=== PATIENT | female | born 2000 | race Caucasian/White ===

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

== ENCOUNTER → 2022-05-20 | Outpatient (CLI) | payer BC, SELFPAY ==
[2022-05-20 10:15] LABS: Absolute Lymphocyte Count 2.19 X10^3/uL (0.83-4.51); Absolute Neutrophil Count 2.5 X10^3/uL (2.0-7.7); Basophil# 0.06 X10^3/uL; Basophil% 1.2 % (0-1); Hematocrit 39.7 % (37-47); Hemoglobin 13.2 g/dL (12.0-15.0); Lymphocyte # 2.19 X10^3/ul (0.83-4.51); Lymphocyte % 42.8 % (19-41); Mean Corp Hgb Conc 33.2 g/dL (32-36); Mean Corpuscular Hgb 29.6 pg (27.0-32.0); Mean Platelet Vol. 12.2 fl (6.2-12.0); Monocyte# 0.31 X10^3/uL; Monocyte% 6.1 % (0-10); NRBC Flagged by Analyzer 0 % (0-5); Neutrophil # 2.45 X10^3/uL (2.7-7.7); Neutrophil % 47.7 % (47-70); Platelet Count 246 K/mm3 (150-450); RBC Distribution Width CV 12.1 % (11.6-14.6); RBC Distribution Width SD 39.6 fl (35.1-43.9); Red Blood Count 4.46 M/mm3 (4.2-5.4); White Blood Count 5.1 K/mm3 (4.4-11.0)
[2022-05-20 10:17] LABS: Hemoglobin A1c 4.8 % (3.8-5.6)
[2022-05-20 10:23] LABS: ALB/GLOB Ratio 1.1 RATIO (0.9-2.4); AST(SGOT) 10 U/L (15-37); Alanine Aminotransfer ALT/SGPT 16 U/L (13-56); Albumin, Serum 3.7 g/dL (3.2-5.0); Alkaline Phosphatase 69 U/L (45-117); Anion Gap 6 (5-15); BUN 10 mg/dL (7-18); BUN/Creat Ratio 15.5 RATIO (10-20); Calcium,Total 8.6 mg/dL (8.5-10.1); Chloride 106 mmol/L (98-107); Cholesterol 188 mg/dL (200); Creatinine, Serum 0.65 mg/dL (0.55-1.02); EST Glomerular Filtration Rate 124 mL/min (>60); Est Glom Filt Rate - Afr Amer 150 mL/min (>60); Globulin 3.4 g/dL (2.2-4.2); Glucose 84 mg/dL (74-106); High Density Lipoprotein 66 mg/dL; Potassium 3.9 mmol/L (3.5-5.1); Protein, Total 7.1 g/dL (6.4-8.2); Sodium Level 140 mmol/L (136-145); Thyroid Stim Hormone (TSH) 0.57 uIU/mL (0.358-3.74); Triglycerides 47 mg/dL; Very Low Density Lipoprotein 9 mg/dL (5-40)
[2022-05-20 10:46] LABS: Valproic Acid (Depakene) Level 65 ug/mL (50-100)
== END | disposition home or self-care (01) ==
DX: F32.A Depression, unspecified (principal)
CPT/HCPCS: 36415; 80053; 80061; 80164; 82140; 83036; 84443; 85025

== ENCOUNTER 2022-06-10 08:00 | Outpatient (RCR) | payer BC, SELFPAY ==
--- NOTE | 2022-06-10 09:00 | BH.SGPN.GN ---
Behaviors/Verbalizations/Mental Status: []Eye contact is poor/avoidant. Motor activity is appropriate. Appearance is casual. Hygiene fair. Speech is Appropriate. Mood is depressed. Affect is flat. Thoughts are linear and logical. No evidence of psychosis. Reviewed daily check in sheet and indicated a 4/5, with 5 being severe, for suicidal ideation and a 1/5 for suicidal intent. Client completed C-SSRS this morning and indicated she could keep self safe. Will meet with PHP individual therapist today. Client Response/Progress/Benefit: []Client passive participant but appeared to listen attentively to others. Client stated she did not want to share this morning. Client's first day in IOP. Seemed to benefit from getting out of her house, hearing struggles and positives from other group members, and support from peers. Client is to continue PHP to improve daily functioning, increase use of healthy coping skills and prevent decompensation. Narrative Note: []
--- NOTE | 2022-06-10 10:05 | BH.SGPN.GN ---
Behaviors/Verbalizations/Mental Status: []Pt alert and oriented, disheveled appearance. Eye contact good. Motor activity appropriate. Speech within normal limits. Affect flat, mood depressed. Thoughts linear, logical, no signs of hallucinations or delusions. Client Response/Progress/Benefit: []Pt attentive during psychoeducation and participated in group activity. Participated in interactive group discussion on internal and external barriers to mental health progress. Group identified examples of internal barriers as; negative thoughts, anxiety, cognitive distortions, and past experiences. Pt elpidio a picture of their current reality which pt described as I'm like a computer that's not plugged in and all the other computers around me are. Pt also elipdio their desired reality which pt described as the computer is plugged in now, but it's still broken. Pt reports feeling like they will never get to a place that they feel better. Group offered support and encouragement. Benefited from increased awareness of current barriers to progress as well as current/desired realities. First day of PHP tx. Pt will continue PHP tx to prevent decompensation, maintain safety, and increase use of healthy coping skills. Narrative Note: []
--- NOTE | 2022-06-10 11:10 | BH.SGPN.GN ---
Behaviors/Verbalizations/Mental Status: [] Eye contact is good. Motor activity is appropriate. Appearance is casual. Speech is Appropriate. Mood is depressed. Affect is flat. Thoughts are linear and logical. No evidence of psychosis. Client Response/Progress/Benefit: [] Pt was an active participant in group discussions. Attentive during psychoeducation. Engaged in experiential group activity. Able to identify barriers to desired reality which include: isolation, over-compensate, and having poor boundaries. Participated as group brainstormed ideas on how to cope with internal barriers that can keep individuals stuck. Benefited from group by identifying obstacles and solutions to desired reality.? Will continue in PHP to maintain safety, prevent decompensation, reduce negative automatic thoughts, and improve functioning. Narrative Note: []
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
--- NOTE | 2022-06-10 14:29 | BH.COMM ---
Communication Note - Communication with Client Communication Note: Met with pt to complete initial paperwork. No significant changes to pre-admission screening. Completed [facility]icide Screening. Moderate-severe risk. Pt reports long-standing history of suicidal ideations. Admits to thoughts of and thoughts of killing herself within the past month, but pt denies any active SI, plan, or intent currently. Pt reports history of two previous suicide attempts via overdose, with the most recent being the beginning of last year. Pt reports history of cutting, but has not cut within the last six months. Pt has stockpiled medications in the past and written suicide notes. Pt reports she is ?too tired? to try and kill herself now and reports ability to maintain safety today. Pt did not represent as an imminent threat to self or others. No access to weapons. Case discussed with Dr. Claire with plan to admit to [facility] level of care with dx of F31.81
--- NOTE | 2022-06-10 15:43 | BH.MDN_ITS ---
Multi-Disciplinary Note - Note 60-min Individual Time Started:: 12:15 Date: 06/10/22 Purpose of session/treatment goals addressed:: Purpose of session was to assess current symptoms and stressors, gather background information and discuss PHP treatment goals. Eye Contact:: Poor Motor Activity:: Appropriate Appearance:: Disheveled Speech:: Soft, Other - latency of speech at times Mood:: Depressed Affect:: Flat Thoughts:: Linear, Logical, Other, No evidence of hallucinations/delusions noted Staff Interventions:: psychoeducation on: - cognitive triangle, CBT techniques, rapport building, strengths perspective, treatment planning, goal setting, taugh t coping skills Client Response:: Client reported first day of group was okay. Client stated she has completed a PHP program in the past when she was an adolescent. Client r eported at the time she had found it helpful because helped keep her accountable. Client stated she knows a lot of skills from being in therapy since adolescence. Client stated part of her wants to get better and the other part of her doesn't want to try. Client stated biggest concerns currently are depression and feeling disconnected. Client elaborated that at time she doesn't feel real. Client stated there are times when she doesn't feel like her family is her family. Client reported having a hard time dealing with the disconnect. Client shared this started three years ago after a friendship falling out in school. Client stated she felt like one of her best friends started to act like client which made client felt like I lost myself. Client reported while in PHP she'd like to work on being more honest with herself and start to feel like her own person again. Client stated she was familiar with psychoeducation about cognitive triangle. Stated she would try opposite action. Client reported small goal for today is to clean inside of her car. Risks/Concerns:: Client reports chronic thoughts of suicide. Denies suicidal intention or plan. feels able to keep self safe. Progress Toward Goals/Plan:: Minimal progress observed due to it being client's first day in PHP. Session focused on building rapport, understanding symptoms that brought client to PHP and identifying treatment goals. Client is to continue PHP to improve daily functioning, increase healthy coping and prevent decompensation. Time Stopped:: 13:15
--- NOTE | 2022-06-11 15:32 | BH.COMM ---
Communication Note - Communication with Client Communication Note: Client called to cancel PHP today due to not feeling well.
--- NOTE | 2022-06-12 09:00 | BH.SGPN.GN ---
Behaviors/Verbalizations/Mental Status: []Eye contact is fair. Motor activity is appropriate. Appearance is casual. Speech is Appropriate. Mood is depressed and anxious. Affect is flat. Thoughts are linear and logical. No evidence of psychosis. Reviewed daily check in sheet and no reports of suicidal ideations or intent. Client Response/Progress/Benefit: []Pt responded well to session, started PHP on 06/10/22. Pt reports feeling detached this morning and did not share much during her check-in. Pt stated her mental health wins are showing up to group today when she wanted to cancel and starting to clean her car. The group offered emotional support to pt and words of encouragement for treatment. Pt appeared highly anxious, so therapist did not push pt to elaborate on her stressors. Pt appeared to benefit from connecting with peers and not isolating. Pt will continue PHP tx to prevent decompensation, reduce isolation, and gain healthy coping skills. Narrative Note: []
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
[2022-06-12 11:05] VITALS: BP 128/86; PULSE 63
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
--- NOTE | 2022-06-12 12:50 | BH.DR.ITP ---
Initial Treatment Plan Patient Information Visit Information: ADMISSION DATE: EXPECTED LOS: 4-6 weeks Problems/Symptoms Problem #1:: Depression Symptom:: Sadness, hopelessness, worthlessness, apathy, guilt, passive thoughts of , recent daily suicidal ideation, decreased concentration, fatigue Problem #2:: Anxiety Symptom:: Worry, rumination, social anxiety
--- NOTE | 2022-06-12 14:31 | BH.MDN ---
Multi-Disciplinary Note - Note 45-min Individual Time Started:: 12:10 Date: 06/12/22 Purpose of session/treatment goals addressed:: Purpose of session was to address goal [address] [facility]. Eye Contact:: Poor Motor Activity:: Appropriate Appearance:: Disheveled Speech:: Soft, Other - latency of speech at times Mood:: Depressed Affect:: Flat Thoughts:: Linear, Logical, No evidence of hallucinations/delusions noted Staff Interventions:: motivational interviewing, CBT techniques, rapport building, strengths perspective, goal setting, taught coping skills - grounding tools and belly breathing techniques Client Response:: Client reported after PHP on Friday she went to her sisters which she stated ?was OK?. Client reported she had an episode while at her sisters in which she felt like other people weren't real and things weren't real. Client stated she woke up still feeling like ?nothing is real? and decided to not come to [facility]. Client reported yesterday she stayed in bed majority of the day doing nothing. Client reported eventually she made herself play a video game but stated she still was not present. Client connected with discussion about depersonalization, disassociation, and disconnection. Therapist explained using mindfulness and grounding tools can be helpful to bring self to here and now. client reported after reflecting yesterday she thinks she started to have issues with feeling disconnected and ?not real? after significant stressor of losing relationship with her two best friends in high school. Client stated the best friend that appeared to take on client?s personality and mannerisms significantly impacted clients own view of self. Client reported she started to question what she liked and still doesn't know who she is today. Client stated she still hangs out with this individual and has moments in which she feels like this friend continues to try to take parts of clients personality. Client identified this disconnection and escape helps her not have to manage the uncomfortable emotions that happen when she feels connected with reality. Client worked with therapist to identify things that used to work in the past with increasing connection which included listening to music, walks, counting, and playing with her cat. Therapist encouraged client to start to engage with some of these skills again to help with her feeling more connected. Client reported personal hygiene has not been very good lately due to feeling depressed. Reported her goal for today is to shower in the evening and practice one of the grounding tools discussed in session today as a way to prevent disconnection from reality. Risks/Concerns:: Client reports chronic thoughts of wishing she didn't exist. Denies suicidal intention or plan. feels able to maintain safety. Progress Toward Goals/Plan:: Progress minimal. Client did not attend PHP yesterday due to not being motivated to get out of bed. Client continuing to report feeling disconnected and not feeling real majority of her days. Client open to trying skills that used to help improve feeling connected in the past and willing to try grounding tools. Therapist reiterated importance of opposite action and identified plan to start with personal hygiene. Plan is to continue PHP to improve daily functioning, increase use of healthy coping and prevent decompensation. Time Stopped:: 12:55
--- NOTE | 2022-06-13 09:05 | BH.SGPN.GN ---
Behaviors/Verbalizations/Mental Status: [] Eye contact is good. Motor activity is appropriate. Appearance is casual. Speech is Appropriate. Mood is euthymic. Affect is full. Thoughts are linear and logical. No evidence of psychosis. Reviewed daily check in sheet and pt identified suicidal thoughts and intent at levels which are baseline since entering the program. Client Response/Progress/Benefit: [] Pt participated only when prompted. Attentive at times, however mostly looked at the ground. She chose not to share today when called up. Limited progress noted. Unknonwn if she benefited at all from group discussions. Continues to be disengaged during groups despite encouragement of staff and peers. No progress noted. Will continue in PHP to maintain safety, increase healthy coping, and improve functioning. Narrative Note: []
--- NOTE | 2022-06-13 10:15 | BH.SGPN.GN ---
Behaviors/Verbalizations/Mental Status: []Pt alert and oriented, disheveled appearance. Eye contact good. Motor activity appropriate. Speech within normal limits. Affect flat, mood depressed. Thoughts linear, logical, no signs of hallucinations or delusions Client Response/Progress/Benefit: []Pt responded well to session AEB taking notes throughout and listening attentively to others. Pt was attentive throughout group activity identifying famous individuals and how they overcame failure to be successful. Pt helped group identify how fear of failure can impact mental health and relationships. Pt personally identified it leads to ?in action? and isolation. Pt participated in experiential activity, and pt struggled at first with expressing ideas, but pt did better by the end of session. ?Appeared to benefit from increased knowledge of fear of failure. Pt is still quiet in group, but her affect is improving. Will continue PHP tx to prevent decompensation and improve daily functioning. Narrative Note: []
--- NOTE | 2022-06-13 11:15 | BH.SGPN.GN ---
Behaviors/Verbalizations/Mental Status: []Pt alert and oriented, disheveled appearance. Eye contact good. Motor activity appropriate. Speech within normal limits. Affect flat, mood depressed. Thoughts linear, logical, no signs of hallucinations or delusions. Client Response/Progress/Benefit: []Pt responded well to session, engaged in the experiential activity and attentive throughout group processing. Pt reported fear of failure has kept pt from making friends, strengthening relationships, hobbies, and being herself. Pt completed fear of failure worksheet and was able to identify thoughts and behaviors that reinforce personal fear of failure including toxic people, being rigid with solutions, and self-sabotage. Pt participated in small group discussion regarding strategies to overcome fear of failure. Identified wanting to work on opposite action and ?fear setting? to overcome fear of failure. Appeared to benefit from increased knowledge of strategies to combat fear of failure and gaining self-awareness. Pt will continue PHP tx to prevent decompensation, gain healthy coping skills, and reduce feelings of disconnect. Narrative Note: []
--- NOTE | 2022-06-13 14:47 | BH.MDN ---
Multi-Disciplinary Note - Note 30-min Individual Time Started:: 12:10 Date: 06/13/22 Purpose of session/treatment goals addressed:: Purpose of session was to address goal 1 from [facility]. Eye Contact:: Poor Motor Activity:: Appropriate Appearance:: Casual Speech:: Soft Mood:: Dysthymic Affect:: Constricted Thoughts:: Linear, Logical, No evidence of hallucinations/delusions noted Staff Interventions:: motivational interviewing, CBT techniques, rapport building, strengths perspective, goal setting Client Response:: Client reported she practiced the grounding tool of engaging her senses. Client stated it ely helped with her feeling more present. Client stated accomplished goal of showering yesterday evening. Stated she would like to have a goal of showering every other day. Client reported she also mowed her parents yard yesterday which is something she hadn't done in a long time. Client stated she decided to do it because she had time and knew it needed done. Client stated with her family she does try to initiate a conversation with someone in the family at least once per day but reported the other person doesn't try to engage with her. Client reported as a family they do play games together every couple weeks in which she is able to enjoy herself. Client reported she does feel often she is just fake happy when around others. Client stated she does see benefit of being around others despite not feeling truly happy. Client connected to education about core beliefs. Client open to completing mistaken beliefs questionnaire. Risks/Concerns:: Client reports chronic thoughts of wishing she didn't exist. Client denies suicidal intent or plan. feels able to maintain safety. Progress Toward Goals/Plan:: Progress noted with client reporting following through with goal of showering and practicing grounding tools to increase connection with here and now. Client showing slight increase in motivation AEB her mowing parents yard on her own volition. Client continues to report disconnection and not feeling real. Client is reporting decrease in isolative behaviors. Client to continue PHP to improve daily functioning, increase healthy coping and prevent decompensation. Time Stopped:: 12:45
--- NOTE | 2022-06-14 16:21 | BH.MDN ---
Multi-Disciplinary Note - Note 45-min Individual Time Started:: 09:55 Date: 06/14/22 Purpose of session/treatment goals addressed:: Purpose of session was to address goal 1 from [facility]. Eye Contact:: Fair Motor Activity:: Appropriate Appearance:: Disheveled Speech:: Appropriate Mood:: Dysthymic Affect:: Constricted Thoughts:: Linear, Logical, No evidence of hallucinations/delusions noted Staff Interventions:: motivational interviewing, CBT techniques, rapport building, strengths perspective, goal setting, other - creating structure/plan for weekend to decrease isolation Client Response:: Client reported yesterday she went out to eat with her family. Client stated it was alright being out with her family. In review of symptoms client reported continues to have passive thoughts of in which she wishes she wasn't alive but doesn't have any active thoughts of wanting to kill herself. Client stated when she has the passive thoughts of it doesn't aurelio effect into more suicidal thoughts. Client stated weekends tend to be a blur in which she doesn't do much. Agreed it would be helpful to create a plan so she knows what she can do over the weekend. Client stated she can spend time at her sister's one of the days and hang out with one of her friends. Client reported she could go on a walk or do something to get outside. Client stated tasks she can complete are cleaning her room, brushing teeth at night every other day and cleaning the litter boxes out. Client stated she believes it is possible to complete these things over the weekend. Risks/Concerns:: Continues to report passive thoughts of . Denies active thoughts of suicide, plan or intention to date. feels able to maintain safety. Progress Toward Goals/Plan:: Progress noted with client turning in completed mistaken beliefs questionnaire, reporting no active suicidal thoughts, and decrease in isolation. Client worked with therapist to develop plan for weekend to increase socialization and accomplish other goals. First session in which client did not talk about feeling disconnected or not real. Plan is to see how weekend goes and discuss on Friday discharging from [facility] and transitioning to IOP on Friday. Time Stopped:: 10:40
--- NOTE | 2022-06-17 09:05 | BH.SGPN.GN ---
Behaviors/Verbalizations/Mental Status: [] Eye contact is poor. Motor activity is appropriate. Appearance is disheveled. Speech is Appropriate. Mood is depressed. Affect is flat. Thoughts are linear and logical. No evidence of psychosis. Reviewed daily check in sheet and pt reports 4/5 for suicidal thoughts, and 1/5 for intent. Staff aware. Will see therapist this afternoon. Client Response/Progress/Benefit: [] Pt participated when prompted. Attentive. Daily symptom tracker notes 5/5 for depression, 3/5 for anxiety, and 2/5 for irritability. Emotion for today is detached. Mental health wins were I'm here today and I started to clean my room. She did not elaborate on either of these wins. Unsure if she is implementing coping skills, thought reframing, or self-care. Unsure what motivated her to start to clean her room. Denies any stressors. Benefited from group support and encouragement. Limited progress noted per pt report. Will continue in [facility] to maintain safety, prevent decompensation, increase healthy coping skills, and improve functioning. Narrative Note: []
--- NOTE | 2022-06-17 10:05 | BH.SGPN.GN ---
Behaviors/Verbalizations/Mental Status: []Pt alert and oriented, disheveled appearance. Eye contact fair. Motor activity appropriate. Speech within normal limits. Affect constricted, mood depressed. Thoughts linear, logical, no signs of hallucinations or delusions. Client Response/Progress/Benefit: []Pt participated at times during the group discussion. Attentive during psychoeducation. Participated in experiential activity. Pt took notes during interactive discussion on the consequences of unhealthy expression of emotions.? Attentive while peers identified several consequences which included; pushing people away, ?exploding,? and losing relationships. Attentive during interactive discussion on common potholes to effectively communicating which included; shutting down, assuming, fear of judgement, and not knowing what to say. Pt reported personally struggling with shutting down and apathy impacting her ability to communicate. ?Pt was able to relate and make connections between the experiential activity and the overall topic. Benefited from increased awareness of how stress and emotions can impact one's ability to communicate. Will continue in PHP tx to increase mood stability, reduce intensity of symptoms, and strengthen healthy coping skills. ? Narrative Note: []
--- NOTE | 2022-06-17 11:05 | BH.SGPN.GN ---
Behaviors/Verbalizations/Mental Status: []Pt alert and oriented, disheveled appearance. Eye contact fair. Motor activity appropriate. Speech within normal limits. Affect constricted, mood depressed. Thoughts linear, logical, no signs of hallucinations or delusions. Client Response/Progress/Benefit: []Pt engaged in session AEB pt listening attentively to peers and taking notes. Attentive during psychoeducation on 4 zones of regulation. Pt able to identify feelings and behaviors for each zone.? Pt identified coping skills one can use to support self in each zone. Pt stated belief that pt is in the blue zone today as pt feels disconnected and apathetic. Pt reports going on a walk today and practicing some grounding could help pt get out of the blue zone today. Benefited from increased education on zones of regulation or stages of alertness for emotions and healthy coping skills to use for each zone. Pt will continue PHP tx to reduce intensity of symptoms, improve daily functioning, and prevent decompensation. Narrative Note: []
--- NOTE | 2022-06-17 15:32 | BH.COMM ---
Communication Note - Communication with Client Communication Note: Client scheduled to meet with PHP individual therapist today after group, but client cancelled session due to having to potato picker brother from another appointment.
--- NOTE | 2022-06-18 15:32 | BH.COMM ---
Communication Note - Communication with Client Communication Note: Client called to cancel PHP today due to not feeling well.
--- NOTE | 2022-06-19 11:54 | PCM.BH.PN ---
Progress Note Progress Note: And history of Present Illness/Interim History: [] The patient is a 22-year-old single female with a history of depression anxiety and cluster B traits who is seen in follow-up at the [facility] behavioral health IOP program. I last saw the patient 1 week ago and at that time she had been started on Effexor XR 37.5 mg 5 days before that appointment. So she has been on this now for almost 2 weeks and is tolerating medication well but does not feel like she is much better. She remains very depressed with hopelessness, worthlessness and anhedonia. She is missed a day or so in the last week and does not participate much in group. She feels that she is not any better. However she still has passive thoughts that she would not care if she but she denies any suicidal ideation whatsoever. She denied this last week also. She also denies plan for suicide, homicidal ideation, hallucinations or delusions or joni. Current Psychiatric Medications: [] Effexor XR 37.5 mg p.o. daily (x2 weeks now) Mental Status Examination: [] The patient is a 22-year-old female who is casually dressed and groomed and is seen wearing a hoodie overhead every day. She has mild psychomotor retardation and looks down during the interview at times. Eye contact is fair to poor and the patient looks down or away often. Speech is normal rate and rhythm and fluent with no pressure. Mood is depressed. Affect is flat and occasionally tearful.. Thought process is goal-directed and organized. Thought content: The patient is very hard on herself and during the interview states that she is very disappointed in her self. There is evidence of passive thoughts of . There is no evidence of suicidal ideation, plan for suicide, homicidal ideation, hallucinations or delusions. Reality testing is intact. Intelligence is above average. Judgment is intact. Insight is limited. Impulsivity is high. Diagnoses: [] 1. Major depressive disorder, recurrent, severe without psychosis 2. Generalized anxiety disorder 3. Strong cluster B traits, rule out avoidant traits Plan: [] The patient will continue the program at [facility] and will be downgraded to the IOP program as she is able to contract for safety. She felt safe during the interview and if it anytime she does not feel safe she will let us know or go to the emergency room. The risk, options and possible complication of the medication were discussed with the patient and she will understands and accepts these. She agrees to increase her Effexor XR to 75 mg p.o. daily and prescription was sent in for this. In several weeks if she is still this sedate I will probably add Wellbutrin. She will continue to follow-up with her outpatient providers and I will see the patient in follow-up in 2 weeks.
--- NOTE | 2022-06-19 14:06 | BH.DS_ITS ---
Discharge Summary - Demographics Date of Admission:: 06/10/22 Discharge Date: 06/19/22 Presenting Problems at Admission:: The patient is a 22-year-old single female with a history of Bipolar 2 disorder and anxiety who was referred to the [facility] behavioral health [facility] program by her outpatient psychiatric provider for worsening depression with daily suicidal ideation. She has been having worsening depressive symptoms since 3 years ago when she was admitted to a psychiatric hospital for depression and a suicide attempt following a traumatic experience at school. She is isolating and does not like for others to see her. She feels numb and nothing feels real. She has not worked for the past 2 weeks and is off work now for [facility] but she used to work at [employer] for the past 4 months. Client endorses depressed mood, low motivation, apathy, hopelessness, worthlessness, guilt, anhedonia, increased sleep, low energy, and decreased concentration. Reports anxious in social situations and worrier by nature. Discharge Diagnoses:: 1. Major depressive disorder, recurrent, severe without psychosis F33.2. 2. Generalized anxiety disorder. 3. Strong cluster B traits, rule out avoidant traits Reason for Discharge:: Client has met maximum benefit from [facility] level of care. No longer reports daily active thoughts of suicide, has been able to maintain safety for over one week. Client reports feeling ready to discharge from [facility]. Client has verbalized she is not sure if she is getting what she wants from current program. Client states she has learned the material in previous PHP prog [facility] 3 years ago and stated the skills did not work. Client did admit she has not been using the skills consistently during current program. Client has requested resources to other programs that offer a different therapeutic approach. - Treatment Progress During Treatment & Response: Progress can be noted with client denying active suicidal thoughts in the last two weeks. Client continues to report passive thoughts of like I wish I didn't exist but denies suicidal intent or plan. Client has cancelled two PHP days due to low motivation. Client is mostly a passive participant during group sessions, however does appear to take notes. Client does struggle with following through with daily goals. Issues Still to be Addressed:: Client could benefit from continue reinforcement of healthy coping skills, using grounding tools more consistently to increase feelings of connectedness, identifying and challenging distorted/negative thinking, and increasing consistency of accomplishing goals. Discharge Recommendations/Instructions:: It is recommended client discharge from PHP and start IOP level of care tomorrow. Client will be provided resources to other types of PHP/IOP programs that she could move to if she feels it is a better fit. Client will admit to [facility] IOP until a new program is decided upon so client does not have lapse in treatment. Discharge Handout: Complete Discharge Handout with client on aftercare options and continuity of care.
--- NOTE | 2022-06-19 15:36 | BH.MDN ---
Multi-Disciplinary Note - Note 30-min Individual Time Started:: 12:05 Date: 06/19/22 Purpose of session/treatment goals addressed:: Purpose of session was to address goal 1 from [facility] and to discuss discharge from [facility]. Eye Contact:: Poor Motor Activity:: Appropriate Appearance:: Disheveled Speech:: Soft, Other - latency of speech Mood:: Depressed Affect:: Flat Thoughts:: Linear, Logical, No evidence of hallucinations/delusions noted Staff Interventions:: motivational interviewing, CBT techniques, discharge planning, strengths perspective, other - review of treatment progress Client Response:: Client reported yesterday she didn't come because she woke up with little motivation so decided to cancel coming to [facility]. Client stated she eventually made herself get up and get a few things down around the house. Client reported over the weekend she did not complete her goals set last session. Client stated she didn't shower or brush teeth on Friday evening and Friday evening as she had reported she would. Client reported she was too busy so wasn't able to complete goal. Client stated on Friday she went out with her Aunt to a movie and hung out with one of her friends for his birthday republican. Client reported the birthday republican was alright. Client stated there was a lot of people at the republican she didn't know so she kept to herself. Client stated Friday she did a lot of tasks around the house for her parents. Client reported on Friday she slept a lot and laid around all day. Client reported yesterday she hung out with the friend she has a complicated history with and it didn't go well. Client stated her friend was making comments that client had made several months ago an the friend was acting like it was her own idea. Client reported it made her start to question if she had the idea in the first place. In review of client's symptoms and how she feels the program is going client stated she kind of feels like she isn't getting what she needs. Client stated she has heard the skills and material before in previous therapy and it hasn't worked before. Client reported she needs more or a different approach. Client unable to articulate what she means by a different approach. Client admitted in [facility] thus far she hasn't put forth as much effort to apply the skills as she did when she did [facility]'s [facility] three years ago. Therapist told client referrals could be provided to other outpatient programs with a different therapeutic modality like [facility]. Client stated she needs to talk with her mom and will make a decision by Friday. Client agreed to discharge from [facility] and start IOP tomorrow. Client states she hasn't had active thoughts of wanting to kill herself in two weeks. Risks/Concerns:: Client continues to report thoughts of wishing she didn't exist. Client states denies thoughts of actually killing herself, suicidal intention or plan. Client feels able to maintain safety. Progress Toward Goals/Plan:: Client progress minimal. Client had been showing slight progress last week when she started to follow through with the skills and goals at home. Client over the weekend did not accomplish goals set and laid around most of the day Friday. Client left early on Friday so did not get her individual session and she cancelled PHP yesterday (second cancel in one week). Client did not verbalize any additional benefit to staying in [facility] and reports no longer having active suicidal thoughts. Client minimal progress could be attributed to poor follow through on following through with skills and client stating she doesn't think this will work since it didn't work in the past. Plan is for client to talk with her mom about potentially seeking treatment at a different program that offers a different therapeutic modality. Client is to tell staff tomorrow what she would like to do. Time Stopped:: 12:40
== END 2022-06-19 14:38 | disposition home or self-care (01) ==
LOC: BHPHP 08:00
PROVIDERS: Referring Provider Psychiatry & Neurology Psychiatry; Visit Provider Psychiatry & Neurology Psychiatry
DX: F33.3 Major depressive disorder, recurrent, severe with psychotic symptoms (principal); F41.1 Generalized anxiety disorder; Z79.899 Other long term (current) drug therapy
CPT/HCPCS: H0035; 90832; 90834; 90837; G0410

== ENCOUNTER 2022-06-20 08:00 | Outpatient (RCR) | payer BC, SELFPAY ==
--- NOTE | 2022-06-19 09:00 | BH.SGPN.GN ---
Behaviors/Verbalizations/Mental Status: [] Eye contact is poor. Motor activity is appropriate. Appearance is casual. Speech is Appropriate. Mood is depressed. Affect is flat. Thoughts are linear and logical. No evidence of psychosis. Client Response/Progress/Benefit: [] Pt participated only when prompted. Attentive at times. Spend most of group looking down at floor. She agreed to share this AM stating that her mental health win is ?I?m here and I took a walk yesterday?. She did not elaborate however did report that the walk was beneficial to her mental health. Stressor is ?setting boundaries? with certain support. Again, she chooses not to elaborate. Unsure if progress noted as pt continue to struggle with opening up in process group. Limited engagement with peers and on topics. Will continue in PHP to maintain safety, increase healthy coping, and prevent decompensation.??? Narrative Note: []
--- NOTE | 2022-06-20 10:00 | BH.SGPN.GN ---
Behaviors/Verbalizations/Mental Status: [] Eye contact is good. Motor activity is appropriate. Appearance is casual. Speech is Appropriate. Mood is anxious. Affect is constricted. Thoughts are linear and logical. No evidence of psychosis. Client Response/Progress/Benefit: [ ] Client still adjusting to group environment with not sharing input in group. Attentive during psychoeducation on the six types of boundaries (physical, emotional, intellectual, sexual, time, and material) AEB note-taking. Group discussed on defining what a boundary is in mental health. Peers identified challenges to setting boundaries which included; fear of other's response, guilt, fear of rejection, fear of disappointing the other person, etc. Peers identified the benefits to setting boundaries such as feeling empowered, decreased stress, and increased time for self-care. Group discussed the mental health benefits to establishing boundaries at work, school, and home. Client benefited from increased awareness and insight on the importance/benefit to setting health boundaries. Will continue in IOP to prevent decompensation, stabilize anxiety, and improve functioning. Narrative Note: []
--- NOTE | 2022-06-20 11:00 | BH.SGPN.GN ---
Behaviors/Verbalizations/Mental Status: [] Client alert and oriented, casually dressed and appropriately groomed. Eye contact good. Motor activity normal. Speech within normal limits. Affect constricted, mood anxious and euthymic. Thoughts linear and intact. no signs of delusions or hallucinations Client Response/Progress/Benefit: [] Client responded well to session AEB listening attentively to peers, providing some input, as well as taking notes throughout. Client contributed some on psychoeducation on different boundary setting styles. Reports connecting most with ridged style of boundary setting, indicating that she does not like to get close to people with fear of rejection. Participated in small group discussion brainstorming various strategies for improving healthy boundary setting. Seemed to benefit from increased awareness of how different boundary styles can impact mental health. Will continue IOP tx to increase consistent application of skills, increase positive self talk and anxiety management, and prevent decompensation. Narrative Note: []
--- NOTE | 2022-06-20 15:16 | BH.COMM ---
Communication Note - Communication with Client Communication Note: Met with pt to complete IOP paperwork. No significant changes since PHP paperwork. Case discussed with Dr. Claire with plan to admit to IOP level of care with dx of F31.81
--- NOTE | 2022-06-24 10:58 | BH.COMM_ITS ---
Communication Note - Communication with Client Communication Note: Client no showed/no called IOP today. This filing writer left voicemail for client requesting her to return call. Client had requested last week to discuss other therapy program options. This filing writer was scheduled to meet with client today to go over those options.
--- NOTE | 2022-06-24 10:58 | BH.COMM ---
Communication Note - Communication with Client Communication Note: Client no showed/no called IOP today. This technical proposal writer left voicemail for client requesting her to return call. Client had requested last week to discuss other therapy program options. This technical proposal writer was scheduled to meet with client today to go over those options.
--- NOTE | 2022-06-26 10:10 | BH.SGPN.GN ---
Behaviors/Verbalizations/Mental Status: [] Eye contact is poor. Motor activity is appropriate. Appearance is disheveled. Speech is Appropriate. Mood is depressed. Affect is flat. Thoughts are linear and logical. No evidence of psychosis. Client Response/Progress/Benefit: [] Pt did not participate in group discussions. Attentive during psychoeducation and while peers had interactive discussions in which group defined self-care, discussed the benefits to self-care, and identified common myths surrounding self-care which included; self-care is selfish, self-care is self-indulgent, self-care is just personal hygiene, self-care should be fun, self-care is too time consuming, I don?t deserve it, self-care means I?m not being productive. Pt did participate at times when peers broke into smaller groups and worked together to bust the myths associated with self-care. Benefited from increased awareness of the self-care and its benefits. Will continue in IOP to maintain safety, prevent decompensation, increase healthy coping, and improve functioning. Narrative Note: []
== END 2022-06-26 23:59 ==
LOC: BHIOP 08:00
PROVIDERS: Referring Provider Psychiatry & Neurology Psychiatry; Visit Provider Psychiatry & Neurology Psychiatry
DX: F31.81 Bipolar II disorder (principal)
CPT/HCPCS: S9480; 90832; 90853

== ENCOUNTER 2022-06-27 07:43 | Outpatient (RCR) | payer BC, SELFPAY ==
--- NOTE | 2022-06-27 09:00 | BH.SGPN.GN ---
Behaviors/Verbalizations/Mental Status: [] Eye contact is poor. Motor activity is appropriate. Appearance is casual. Speech is Appropriate. Mood is depressed. Affect is flat. Thoughts are linear and logical. No evidence of psychosis. Reviewed daily check in sheet and pt reports 4/5 for suicidal ideations and 0/5 for intent. This is close to baseline. Client Response/Progress/Benefit: [] Pt participated only when prompted. Attentive at times however mainly looking down. Mental health win was ?I went to the park for a walk? . Emotion for today is ?distant?. She states ?I have no stressors?. Daily symptom tracker notes 4/5 for depression and 4/5 for suicidal thoughts. No progress noted. Limited benefit from group discussions. Will continue in IOP to maintain safety, increase healthy coping, and improve functioning. Narrative Note: []
--- NOTE | 2022-07-03 11:13 | BH.COMM ---
Communication Note - Communication with Client Communication Note: no call/ no show for IOP today. She was scheduled to meet with psychiatrist. Has been inconsistent with both PHP and IOP since being admitted.
--- NOTE | 2022-07-04 09:27 | BH.COMM_ITS ---
Communication Note - Communication with Client Communication Note: Client no showed/no called. Second no show this week. This technical report writer left voicemail asking for callback and if doesn't hear back by today at 2pm client will be discharged from [facility].
--- NOTE | 2022-07-04 09:27 | BH.COMM ---
Communication Note - Communication with Client Communication Note: Client no showed/no called. Second no show this week. This typewriter repairer left voicemail asking for callback and if doesn't hear back by today at 2pm client will be discharged from [facility].
--- NOTE | 2022-07-04 14:36 | BH.DS ---
Discharge Summary - Demographics Date of Admission:: 06/10/22 Discharge Date: 07/04/22 Presenting Problems at Admission:: The patient is a 22-year-old single female with a history of Bipolar 2 disorder and anxiety who was referred to the [facility] behavioral health PHP program by her outpatient psychiatric provider for worsening depression with daily suicidal ideation. She has been having worsening depressive symptoms since 3 years ago when she was admitted to a psychiatric hospital for depression and a suicide attempt following a traumatic experience at school. She is isolating and does not like for others to see her. She feels numb and nothing feels real. She has not worked for the past 2 weeks and is off work now for [employer] but she used to work at [employer] for the past 4 months. Client endorses depressed mood, low motivation, apathy, hopelessness, worthlessness, guilt, anhedonia, increased sleep, low energy, and decreased concentration. Reports anxious in social situations and worrier by nature. Discharge Diagnoses:: 1. Major depressive disorder, recurrent, severe without psychosis F33.2. 2. Generalized anxiety disorder. 3. Strong cluster B traits, rule out avoidant traits Reason for Discharge:: Client had requested information for a different IOP due to not seeing progress and wanting to try a IOP with a different therapeutic modality. It had been agreed client would continue IOP until she was accepted into the new DBT IOP through [facility]. However, client no showed several sessions and would not return phone calls from IOP staff, which has led to client's discharge from program. - Treatment Progress During Treatment & Response: Minimal progress noted. Client continues to report feeling disconnected and not real. Client admitted she has not been applying the skills consistently. Client reported she hasn't been using the skills because she's tried the skills in the past and they didn't work. Client passive participant in group sessions. Issues Still to be Addressed:: Increase consistent use of healthy coping, increase use of grounding tools, challenging negative thinking, and increase healthy social supports. Discharge Recommendations/Instructions:: Client recommended to contact [facility] to establish in the DBT IOP program. Discharge Handout: Complete Discharge Handout with client on aftercare options and continuity of care.
== END 2022-07-05 07:17 | disposition home or self-care (01) ==
LOC: BHIOP 07:43
PROVIDERS: Referring Provider Psychiatry & Neurology Psychiatry; Visit Provider Psychiatry & Neurology Psychiatry
DX: F33.2 Major depressive disorder, recurrent severe without psychotic features (principal); F41.8 Other specified anxiety disorders
CPT/HCPCS: S9480; 90853

== ENCOUNTER 2022-08-27 16:50 | Emergency (ER) | payer BC, SELFPAY ==
[2022-08-27 16:52] VITALS: BP 113/86; PULSE 78; RESP 18; TEMP 36.6; O2SAT 99; BMI 39.5
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
[2022-08-27 18:47] LABS: Absolute Lymphocyte Count 3.06 X10^3/uL (0.83-4.51); Absolute Neutrophil Count 5.6 X10^3/uL (2.0-7.7); Basophil# 0.09 X10^3/uL; Basophil% 0.9 % (0-1); Eosinophil# 0.12 X10^3/uL; Eosinophils% 1.3 % (0-5); Hematocrit 44.5 % (37-47); Hemoglobin 15.2 g/dL (12.0-15.0); Lymphocyte # 3.06 X10^3/ul (0.83-4.51); Lymphocyte % 32.3 % (19-41); Mean Corp Hgb Conc 34.2 g/dL (32-36); Mean Corpuscular Hgb 30.4 pg (27.0-32.0); Mean Platelet Vol. 11.5 fl (6.2-12.0); Monocyte# 0.62 X10^3/uL; Monocyte% 6.5 % (0-10); NRBC Flagged by Analyzer 0 % (0-5); Neutrophil # 5.56 X10^3/uL (2.7-7.7); Neutrophil % 58.7 % (47-70); Platelet Count 270 K/mm3 (150-450); RBC Distribution Width CV 12.1 % (11.6-14.6); RBC Distribution Width SD 39.3 fl (35.1-43.9); White Blood Count 9.5 K/mm3 (4.4-11.0)
--- NOTE | 2022-08-27 18:51 | EDS_ITS ---
HPI HPI - Psych History of Present Illness Chief Complaint: Mental Health Narrative Narrative: 22-year-old female with history of depression presenting at the behest of her psychiatrist as she is not improving. She has been depressed for years. Her psychiatrist has been seeing her since he was a teenager. This is worsening. Medications are not helping. She has thoughts of despair. She states I do not want to keep living like this. She states that she does not feel like she connects with anybody or anything. She states she does not feel ramo. She denies suicidal or homicidal ideation. She is not hallucinating. She is not confused. Patient was told that her next therapy will be either lithium or ketamine therapy. [facility] Medical History Abdominal pain Foreign body of knee Generalized anxiety disorder Major depressive disorder, recurrent severe without psychotic features Nausea Home Medications venlafaxine 75 mg capsule,extended release 24 hr (Effexor XR) 150 mg PO DAILY 08/27/22 [History Last Taken Unknown] Allergy/AdvReac Type Severity Reaction Status Date / Time No Known Allergies Allergy Verified 08/27/22 16:52 Family History Mother Hypertension Father High cholesterol Surgical History Hx of retained foreign body fully removed Social History Smoking Status: Never smoker second hand exposure: No alcohol intake: never substance use type: does not use caffeine: Yes what type of physical activity do you participate in: none frequency: does not exercise seatbelt use: always ROS ROS ED Constitutional Constitutional ED: Denies chills Eyes Eyes: Denies change in vision ENT ENT ED: Denies rhinorrhea or sore throat Cardiovascular Cardiovascular: Denies chest pain or palpitations Respiratory/Chest Respiratory/Chest: Denies cough or dyspnea Gastrointestinal Gastrointestinal: Denies abdominal pain or constipation Genitourinary Genitourinary ED: Denies dysuria or hematuria Musculoskeletal Musculoskeletal: Denies arthralgias or back pain Integumentary Denies abscess or Abrasions Neurologic Neurologic: Denies headache(s) or paresthesias Psychiatric Psychiatric: Reports anxiety and depression; Denies suicidal ideation or suicidal thoughts EXAM Physical Exam Const Vital Signs: 08/27/22 16:52 08/27/22 19:53 08/27/22 21:13 Temperature 97.8 F Temperature Source Temporal Pulse Rate 78 78 Respiratory Rate 18 16 17 Blood Pressure 113/86 H Blood Pressure Mean 95 Pulse Ox 99 97 Oxygen Delivery Method Room Air Room Air 08/27/22 21:15 Temperature 97.8 F Temperature Source Temporal Pulse Rate 68 Respiratory Rate 15 Blood Pressure 120/70 Blood Pressure Mean 86 Pulse Ox 98 Oxygen Delivery Method Room Air Positive well nourished General Appearance ED: NAD; Negative for pallor HEENT Reports moist mucous membranes normocephalic and atraumatic Eyes PERRL and EOMs intact bilaterally Neck no lymphadenopathy and supple Resp normal respiratory effort and clear to auscultation bilaterally Auscultation: Negative for rales, rhonchi or wheezes Cardio Rate: regular rate Rhythm: regular rhythm Neuro oriented x3 and CN's II-XII intact bilaterally Sensorium / Orientation: alert Psych denies hallucinations, denies homicidal ideation and denies suicidal ideation Attitude: withdrawn Activity / Motor Behavior: Negative for appropriate eye contact Speech: slow and delayed Mood & Affect: sad, tearful and flat affect Thought Process: No incoherent, No disorganized, No confused, No confabulating and No flight of ideas Thought Content: No suicidality, No homicidality, No delusion(s) and No hallucination(s) Attention / Concentration: attention grossly intact Memory / Cognition: memory grossly intact Insight: limited Judgement: limited Skin General Skin Exam: Negative for jaundice or pallor MDM MDM MDM Narrative Medical decision making narrative: Patient presenting with increasing depression and inability to cope with daily life. She reports that she feels despair. She states that she is disconnected with everybody and everything. She feels as if she is hopeless. She is not specifically suicidal or homicidal but does report that she just wants everything to and. She is not sure how to fix this. Her medications are not helping. Her psychiatrist had been seeing her since she was a teenager sent her here out of concern that she was progressively getting worse. Social work was able to speak with her and she recommended inpatient therapy given the failure of outpatient therapy. Blood work is obtained and her CBC and BMP are normal. H&H normal. Drug screen negative. COVID-negative. hCG negative. Patient medically cleared for psychiatry transfer. Patient currently awaiting a bed. She will be signed out to incoming ED physician for monitoring until this can be arranged. She has been stable here and not required any medication or restraints. Impression: 1. Depression Lab Data Attestation: I reviewed the patient's lab results. Labs: Laboratory Results - last 24 hr 08/27/22 08/27/22 08/27/22 18:35 18:35 18:35 WBC 9.5 RBC 5.00 Hgb 15.2 H Hct 44.5 MCV 89.0 MCH 30.4 MCHC 34.2 RDW Std Deviation 39.3 RDW Coeff of Cesia 12.1 Plt Count 270 MPV 11.5 Immature Gran % (Auto) 0.300 Neut % (Auto) 58.7 Lymph % (Auto) 32.3 Custer % (Auto) 6.5 Eos % (Auto) 1.3 Baso % (Auto) 0.9 Absolute Neuts (auto) 5.6 Absolute Lymphs (auto) 3.06 Nucleated RBC % 0 Sodium 139 Potassium 3.8 Chloride 108 H Carbon Dioxide 23.0 Anion Gap 8 BUN 18 Creatinine 0.69 Estim Creat Clear Calc 93.42 Est GFR (MDRD) Af Amer 139 Est GFR (MDRD) Non-Af 115 BUN/Creatinine Ratio 26.1 H Glucose 91 Calcium 9.8 Serum , Qual Urine Opiates Screen Urine Methadone Screen Ur Barbiturates Screen Ur Phencyclidine Scrn Ur Amphetamines Screen MDMA (Ecstasy) Screen U Benzodiazepines Scrn Urine Cocaine Screen U Cannabinoids Screen Ur Drug Screen Comment Ethyl Alcohol 6.0 08/27/22 08/27/22 18:35 19:00 WBC RBC Hgb Hct MCV MCH MCHC RDW Std Deviation RDW Coeff of Cesia Plt Count MPV Immature Gran % (Auto) Neut % (Auto) Lymph % (Auto) Custer % (Auto) Eos % (Auto) Baso % (Auto) Absolute Neuts (auto) Absolute Lymphs (auto) Nucleated RBC % Sodium Potassium Chloride Carbon Dioxide Anion Gap BUN Creatinine Estim Creat Clear Calc Est GFR (MDRD) Af Amer Est GFR (MDRD) Non-Af BUN/Creatinine Ratio Glucose Calcium Serum , Qual NEGATIVE Urine Opiates Screen NEGATIVE Urine Methadone Screen NEGATIVE Ur Barbiturates Screen NEGATIVE Ur Phencyclidine Scrn NEGATIVE Ur Amphetamines Screen NEGATIVE MDMA (Ecstasy) Screen NEGATIVE U Benzodiazepines Scrn NEGATIVE Urine Cocaine Screen NEGATIVE U Cannabinoids Screen NEGATIVE Ur Drug Screen Comment Ethyl Alcohol Discharge Plan Triage Chief Complaint: Mental Health ED Provider: Ezequiel Pierce Dx/Rx/DC Orders Prescriptions: No Action venlafaxine [Effexor XR] 75 mg capsule,extended release 24hr 150 mg PO DAILY Primary Care Provider: Marcella Soler Referrals: Marcella Soler MD [Primary Care Provider] -
[2022-08-27 19:07] LABS: Anion Gap 8 (5-15); BUN 18 mg/dL (7-18); BUN/Creat Ratio 26.1 RATIO (10-20); Calcium,Total 9.8 mg/dL (8.5-10.1); Chloride 108 mmol/L (98-107); Creatinine, Serum 0.69 mg/dL (0.55-1.02); EST Glomerular Filtration Rate 115 mL/min (>60); Est Glom Filt Rate - Afr Amer 139 mL/min (>60); Estimated Creatinine Clearance 93.42 ml/min; Glucose 91 mg/dL (74-106); Potassium 3.8 mmol/L (3.5-5.1); Sodium Level 139 mmol/L (136-145)
[2022-08-27 19:37] LABS: Amphetamine Urine VISTA NEGATIVE (<1000 ng/mL); Barbiturate Urine VISTA NEGATIVE (< 200 ng/mL); Benzodiazepine Urine VISTA NEGATIVE (< 200 ng/mL); Cocaine Urine VISTA NEGATIVE (< 300 ng/mL); Ecstacy Urine VISTA NEGATIVE (< 500 ng/mL); Methadone Urine VISTA NEGATIVE (< 300 ng/mL); PCP Urine VISTA NEGATIVE (< 25 ng/mL); THC Urine VISTA NEGATIVE (< 50 ng/mL); Vista UDS pH Range 5
[2022-08-27 19:46] LABS: Internal QC Validated? YES +Cl - CLEAR BKGD; Pregnancy, Serum, hCG Quali. NEGATIVE Negative
--- NOTE | 2022-08-27 19:52 | CM.ED ---
Addendum entered by Nicolette Sutton 08/27/22 20:08: PIPO advised that patient's sister, Nayeli, will be updated regarding patient and placement [phone]. Nicolette TRINIDAD Original Note: PIPO spoke to patient's sister, rosalio's mother and patient and updated them that we are looking for inpatient psych for patient. PIPO called [facility] but their intake staff was talking to this junior underwriter and then was gone from the phone. PIPO called [facility] and they have no beds tonight however will have 4 beds tomorrow. PIPO called Daniella at Crisis and updated her regarding patient and that patient needs referral for placement. PIPO faxed referral packet for patient to [facility]. Nicolette TRINIDAD
[2022-08-27 19:53] VITALS: PULSE 78; RESP 16; O2SAT 97
[2022-08-27 21:13] VITALS: RESP 17
[2022-08-27 21:15] VITALS: BP 120/70; PULSE 68; RESP 15; TEMP 36.6; O2SAT 98
[2022-08-28 00:11] VITALS: PULSE 77
[2022-08-28 05:06] VITALS: RESP 17; O2SAT 98
[2022-08-28 05:14] VITALS: BP 118/74; PULSE 76; RESP 16; O2SAT 98
[2022-08-28 05:18] VITALS: BP 118/74; PULSE 76; RESP 16; O2SAT 98
--- NOTE | 2022-08-28 05:21 | NURSING ---
LMOM WITH ERVIN AT [phone], TO LET KNOW PATIENT ACCEPTED AND TRANSPORT ETA AT 7AM TO [facility].
== END 2022-08-28 06:42 | disposition short-term general hospital (02) ==
PROVIDERS: Emergency Provider Student in an Organized Health Care Education/Training Program; PCP Pediatrics; Visit Provider Student in an Organized Health Care Education/Training Program
DX: F33.2 Major depressive disorder, recurrent severe without psychotic features (principal); Z20.822 Contact with and (suspected) exposure to COVID-19; F41.1 Generalized anxiety disorder; Z79.899 Other long term (current) drug therapy
CPT/HCPCS: 80048; 80307; 82077; 84703; 85025; 87811; 93005; 99284